=== PATIENT | male | born 1970 | race Caucasian/White ===

== ENCOUNTER 2018-11-16 10:08 | Day surgery (SDC) | payer BC, OTHER ==
[~2018-11-16] VITALS: Ht 188 cm; Wt 108.9 kg
[~2018-11-16 10:08] MED LIST: CENTRUM SILVER1 EAC2 PO
[2018-11-16 11:50] VITALS: BP 121/58
[2018-11-16] MEDS ORDERED: NORCO 5-325 TA1 EAC1 PO (12:00)
[2018-11-16 12:05] VITALS: BP 121/58
--- NOTE | 2018-11-20 08:25 | O ---
[facility] [place] [address] OPERATIVE REPORT Name: ISRAEL DAILEY Room #: DEP [facility] MKm.#: [id number] Admission: 11/16/18 Attend Phys: Tiago Steinberg MD Discharge: 11/16/18 Date of : 68 Report #: [id number] THIS REPORT FOR: //name// CC: Ryan Steinberg DATE OF SERVICE: 11/16/2018 PREOPERATIVE DIAGNOSIS: Right knee possible medial meniscus tear. POSTOPERATIVE DIAGNOSES: 1. Right knee root tear of posterior horn of medial meniscus. 2. Grade 3 chondromalacia of the patella. 3. 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 PROCEDURE: Right knee arthroscopy with partial medial meniscectomy. SURGEON: Tiago Steinberg MD. SUPERVISOR STAVE FINISHING: Jess Hutchinson PA-C. INDICATIONS FOR SUPERVISOR STAVE FINISHING: Throughout the case, extensive retraction and manipulation of the knee was required secondary to the patient's BMI which was 58. ANESTHESIA: LMA. TOURNIQUET TIME: Approximately 18 minutes. COMPLICATIONS: None. SPECIMENS: None. CONDITION UPON LEAVING THE OPERATING ROOM: Stable. INDICATIONS FOR PROCEDURE: The patient is a 48-year-old gentleman who has had medial-sided right knee pain. He had failed conservative measures for this including physical therapy. He had an MRI scan, which was relatively unremarkable. However, after discussion with him and failure of conservative measures, he elected for diagnostic right knee arthroscopy with debridement as needed. DESCRIPTION OF PROCEDURE: Risks, benefits, alternatives, complications were discussed in detail with the patient including but not limited to risk of anesthesia; risk of damage to nerves, arteries, blood vessels; risk for infection, bleeding; risk for continued knee pain, need for reoperation. [facility] [address] [place] [address] OPERATIVE REPORT Name: ISRAEL DAILEY Room #: DEP [facility] Emani.#: [id number] Admission: 11/16/18 Attend Phys: Tiago Steinberg MD Discharge: 11/16/18 Date of : 68 Report #: [id number] Informed consent was obtained from the patient. Right knee was appropriately marked in the preoperative holding area. IV clindamycin was given for preoperative antibiotics. He was brought to the operating room and placed in supine position on operating room table. LMA anesthesia was induced without complication. Tourniquet was placed on the right thigh. Right lower extremity was prepped and draped in normal sterile fashion. Timeout was performed properly identifying the patient and procedure as well as instrumentation. All in the operating room were in agreement. Right lower extremity was exsanguinated, tourniquet was inflated. Tourniquet time was 18 minutes. Standard anterolateral portal was established with an 11 blade through the skin. Arthroscope was introduced into the patellofemoral compartment. Diagnostic arthroscopy was undertaken. Patellofemoral compartment was visualized and found to have grade 3 chondromalacia of patella. Medial gutter was visualized and found to be without pathology. Medial compartment was visualized and medial portal was established under arthroscopic visualization. Probe was introduced into the medial compartment. There was noted to be a root tear of the posterior horn of medial meniscus. This was trimmed back to stable rim with arthroscopic biter and smoothed back with a shaver. Notch was visualized and found to have an intact anterior cruciate ligament. Lateral compartment was visualized and found to have grade 2 chondromalacia of the lateral tibial plateau. Scope was placed back in the patellofemoral compartment and all fluid was allowed to drain from the knee. Knee was injected with 10 mL of 0.5% Marcaine. Incision was closed with 3-0 nylon. Soft dressing of Adaptic, 4 x 4, Webril, Hema wrap were applied. The patient tolerated this procedure well and went to recovery room under care of anesthesia postoperatively. <ELECTRONICALLY SIGNED> By: Tiago Steinberg MD 11/20/18 0825 [id number] Tiago Steinberg MD /nt
== END 2018-11-16 12:55 | disposition home or self-care (01) ==
LOC: OR 10:08 → TBA 10:09 → OR 10:48
DX: S83.241A Other tear of medial meniscus, current injury, right knee, initial encounter (principal); M94.261 Chondromalacia, right knee; Z90.49 Acquired absence of other specified parts of digestive tract; Z87.442 Personal history of urinary calculi; Z98.84 Bariatric surgery status; Z88.0 Allergy status to penicillin; X58.XXXA Exposure to other specified factors, initial encounter; Y93.89 Activity, other specified; Y92.89 Other specified places as the place of occurrence of the external cause; Y99.8 Other external cause status
CPT/HCPCS: 50010; 50101; 50405; 51038; 54170; 56526; 57103; 57181; 62110; 62900; 70005